=== PATIENT | female | born 1990 | race Two or more races ===

== ENCOUNTER 2018-08-21 16:33 | Inpatient (IN) | payer OTHER ==
[~2018-08-21] VITALS: Ht 152.4 cm; Wt 62.6 kg
[2018-09-02] MEDS ORDERED: SYNTHROID50 MCG PO (07:13)
== END 2018-09-04 14:53 | disposition home or self-care (01) | DRG 788 ==
LOC: LDR 09-02 06:44 → OB/GYN 09-02 11:15
PROVIDERS: Obstetrics & Gynecology; ADMIT Specialist
PROC: 3E033VJ Introduction of Other Hormone into Peripheral Vein, Percutaneous Approach (ICD-10-PCS; 2018-09-02)
PROC: 4A1HXCZ Monitoring of Products of Conception, Cardiac Rate, External Approach (ICD-10-PCS; 2018-09-02)
PROC: 10D00Z1 Extraction of Products of Conception, Low, Open Approach (ICD-10-PCS; principal; 2018-09-02 10:00)
DX: O82 Encounter for cesarean delivery without indication (principal); O76 Abnormality in fetal heart rate and rhythm complicating labor and delivery; Z3A.38 38 weeks gestation of pregnancy; Z37.0 Single live birth

== ENCOUNTER 2020-01-10 07:54 | Outpatient (CLI) | payer OTHER ==
[~2020-01-10 07:54] MED LIST: SYNTHROID50 MCG PO
== END 2020-01-10 10:48 | disposition home or self-care (01) ==
LOC: NST 07:54
PROVIDERS: ATTEND Specialist
DX: Z34.83 Encounter for supervision of other normal pregnancy, third trimester (principal)

== ENCOUNTER 2020-01-24 07:28 | Outpatient (CLI) | payer OTHER | END 2020-01-24 08:20 | disposition home or self-care (01) | LOC: NST 07:28 | PROVIDERS: ATTEND Specialist | DX: Z34.83 Encounter for supervision of other normal pregnancy, third trimester (principal) ==

== ENCOUNTER 2020-01-31 09:11 | Outpatient (CLI) | payer OTHER | END 2020-01-31 10:50 | disposition home or self-care (01) | LOC: NST 09:11 | PROVIDERS: ATTEND Specialist | DX: Z34.83 Encounter for supervision of other normal pregnancy, third trimester (principal) ==

== ENCOUNTER 2020-02-07 07:08 | Outpatient (CLI) | payer OTHER | END 2020-02-07 09:03 | disposition home or self-care (01) | LOC: NST 07:08 | PROVIDERS: ATTEND Specialist | DX: Z34.83 Encounter for supervision of other normal pregnancy, third trimester (principal) ==

== ENCOUNTER 2020-02-14 09:08 | Inpatient (IN) | payer OTHER ==
[~2020-02-14] VITALS: Ht 152.4 cm; Wt 64.0 kg
[2020-02-18] MEDS ORDERED: IRON236 MG PO (14:04)
[2020-02-20] MEDS ORDERED: PRENATAL CAPLE1 EAC1 PO (11:38)
== END 2020-02-24 14:39 | disposition home or self-care (01) | DRG 785 ==
LOC: OB/GYN 02-18 11:15 → LDR 02-20 07:18 → OB/GYN 02-20 07:18
PROVIDERS: ADMIT Specialist; ATTEND Specialist
PROC: 30233N1 Transfusion of Nonautologous Red Blood Cells into Peripheral Vein, Percutaneous Approach (ICD-10-PCS; 2020-02-20)
PROC: 0UB70ZZ Excision of Bilateral Fallopian Tubes, Open Approach (ICD-10-PCS; 2020-02-21)
PROC: 4A1HXFZ Monitoring of Products of Conception, Cardiac Rhythm, External Approach (ICD-10-PCS; 2020-02-21)
PROC: 3E033VJ Introduction of Other Hormone into Peripheral Vein, Percutaneous Approach (ICD-10-PCS; 2020-02-21)
PROC: 10D00Z1 Extraction of Products of Conception, Low, Open Approach (ICD-10-PCS; principal; 2020-02-21 09:00)
DX: O82 Encounter for cesarean delivery without indication (principal); O34.211 Maternal care for low transverse scar from previous cesarean delivery; Z30.2 Encounter for sterilization; Z37.0 Single live birth; Z3A.39 39 weeks gestation of pregnancy; Z86.19 Personal history of other infectious and parasitic diseases; O99.02 Anemia complicating childbirth; D64.9 Anemia, unspecified